=== PATIENT | female | born 2000 | race Two or more races ===

== ENCOUNTER 2022-07-17 19:59 | Emergency (ER) | payer SELFPAY ==
[~2022-07-17] VITALS: Ht 162.6 cm; Wt 63.6 kg
[2022-07-17 20:00] VITALS: BP 121/75
[2022-07-17 21:49] LABS: BASO % 0.2 % (0.0-1.0); EOS # 0.1 10^3/uL (0.0-0.5); EOS % 0.6 % (0.0-3.0); HEMATOCRIT 39.4 % (36.0-47.0); HEMOGLOBIN 12.2 g/dl (12.0-15.5); LYMPH # 0.6 10^3/uL (1.5-5.0); LYMPH % 6.8 % (24.0-44.0); MEAN CORPUSCULAR HEMOGLOBIN 29.1 pg (27.0-33.0); MONO # 0.5 10^3/uL (0.0-0.8); MONO % 5.8 % (2.0-8.0); NEUTROPHILS % 86.4 % (36.0-66.0); PLATELET COUNT, AUTOMATED 206 10^3/uL (150-450); RED BLOOD COUNT 4.19 10^6/uL (4.00-5.40); WHITE BLOOD COUNT 8.1 10^3/uL (4.0-10.0)
[2022-07-17 22:12] LABS: HCG, SERUM QUALITATIVE NEGATIVE (NEGATIVE); LIPASE 35 U/L (12-53)
[2022-07-17 22:13] LABS: ALBUMIN 4.2 G/DL (3.2-5.2); ALKALINE PHOSPHATASE 80 U/L (46-116); ALT/SGPT 85 U/L (7.0-40); AST/SGOT 455 U/L (<34); BILIRUBIN,DIRECT 0.3 MG/DL (<0.4); BILIRUBIN,TOTAL 0.8 MG/DL (0.3-1.2); BLOOD UREA NITROGEN 13 MG/DL (9-23); CARBON DIOXIDE LEVEL 26 MMOL/L (20-31); CHLORIDE LEVEL 104 MMOL/L (98-107); CREATININE FOR GFR 0.73 MG/DL (0.55-1.30); GLOMERULAR FILTRATION RATE > 60.0 (>60); GLUCOSE, FASTING 87 MG/DL (60-100); POTASSIUM SERUM 4.5 MMOL/L (3.5-5.1); SODIUM LEVEL 138 MMOL/L (136-145); TOTAL PROTEIN 7.5 G/DL (5.7-8.2)
== END 2022-07-18 00:26 | disposition left against medical advice (07) ==
LOC: M ED 19:59
DX: Z53.21 Procedure and treatment not carried out due to patient leaving prior to being seen by health care provider (principal)

== ENCOUNTER 2023-08-24 17:33 | Emergency (ER) | payer OTHER, SELFPAY ==
[~2023-08-24] VITALS: Ht 154.9 cm; Wt 79.8 kg
[2023-08-24] MEDS ORDERED: OMEP-173 (17:40)
[2023-08-24] MEDS ORDERED: FLUTISP (17:40)
[2023-08-24 18:39] LABS: BASO % 0.4 % (0.0-1.0); EOS # 0.2 10^3/uL (0.0-0.5); EOS % 3.2 % (0.0-3.0); HEMATOCRIT 40.6 % (36.0-47.0); HEMOGLOBIN 12.6 g/dl (12.0-15.5); LYMPH # 2.7 10^3/uL (1.5-5.0); LYMPH % 50.6 % (24.0-44.0); MEAN CORPUSCULAR HEMOGLOBIN 28.5 pg (27.0-33.0); MEAN CORPUSCULAR VOLUME 91.9 fl (80.0-96.0); MONO # 0.4 10^3/uL (0.0-0.8); MONO % 7.2 % (2.0-8.0); NEUTROPHILS % 38.4 % (36.0-66.0); PLATELET COUNT, AUTOMATED 279 10^3/uL (150-450); RED BLOOD COUNT 4.42 10^6/uL (4.00-5.40); WHITE BLOOD COUNT 5.3 10^3/uL (4.0-10.0)
[2023-08-24] MEDS: KETOROLAC 30 MG/ML 1ML VIAL IV ONE (19:00)
[2023-08-24 19:01] LABS: LIPASE 50 U/L (12-53)
[2023-08-24 19:03] LABS: ALBUMIN 4.3 G/DL (3.2-5.2); ALKALINE PHOSPHATASE 112 U/L (46-116); ALT/SGPT 23 U/L (7.0-40); AST/SGOT 23 U/L (<34); BILIRUBIN,DIRECT < 0.1 MG/DL (<0.4); BILIRUBIN,TOTAL 0.4 MG/DL (0.3-1.2)
[2023-08-24 20:15] LABS: Trichomonas vaginalis (AMP) NOT DETECTED (NEGATIVE)
[2023-08-24 20:38] LABS: GC DNA AMPLIFICATION NEGATIVE (NEGATIVE)
[2023-08-24 22:21] VITALS: BP 123/79; TEMP 97.9; O2SAT 100
== END 2023-08-24 22:27 | disposition home or self-care (01) ==
LOC: M ED 17:33
DX: N93.8 Other specified abnormal uterine and vaginal bleeding (principal); R10.32 Left lower quadrant pain; R10.2 Pelvic and perineal pain; N20.0 Calculus of kidney; N28.89 Other specified disorders of kidney and ureter; N85.4 Malposition of uterus; K21.9 Gastro-esophageal reflux disease without esophagitis
CPT/HCPCS: 74176; 76830; 76856; 80047; 80076; 81001; 83690; 84702; 85025; 87086; 87661; 87810; 87850; 93976; 96374; 99284; J1885

== ENCOUNTER → 2023-09-15 | Outpatient (CLI) | payer OTHER ==
[~2023-09-15] MED LIST: FLUTISP; ISOVUE-370 76% 100ML VIAL ONE; OMEP-173
== END ==
LOC: M PLAIMG 08:57
PROVIDERS: ATTEND Nurse Practitioner Family
DX: N28.9 Disorder of kidney and ureter, unspecified (principal)
CPT/HCPCS: 74170; Q9967

== ENCOUNTER → 2024-01-02 | Outpatient (CLI) | payer OTHER ==
[~2024-01-02] MED LIST changes: +ISOVUE-300 61% 100ML VIAL As Ordered ONE; -ISOVUE-370 76% 100ML VIAL ONE; +LIDOCAINE 1% MDV 20ML VIAL As Ordered ONE; +TRIAMCINOLONE ACETONIDE SUSP 40MG/ML 1ML VIAL As Ordered ONE
== END ==
LOC: M RAD 12:26
PROVIDERS: ATTEND Physician Assistant Surgical
DX: S73.122A Ischiocapsular ligament sprain of left hip, initial encounter (principal); S73.121A Ischiocapsular ligament sprain of right hip, initial encounter; X58.XXXA Exposure to other specified factors, initial encounter; Y92.9 Unspecified place or not applicable
CPT/HCPCS: 20610; 77002; J3301; Q9967

== ENCOUNTER 2024-02-29 19:17 | Inpatient (IN) | payer OTHER ==
[~2024-02-29] VITALS: Ht 162.6 cm; Wt 75.0 kg
[~2024-02-29 19:17] MED LIST changes: -ISOVUE-300 61% 100ML VIAL As Ordered ONE; -LIDOCAINE 1% MDV 20ML VIAL As Ordered ONE; -TRIAMCINOLONE ACETONIDE SUSP 40MG/ML 1ML VIAL As Ordered ONE
[2024-02-29 20:06] LABS: HEMATOCRIT 38.1 % (36.0-47.0); HEMOGLOBIN 11.7 g/dl (12.0-15.5); MEAN CORPUSCULAR HEMOGLOBIN 28.5 pg (27.0-33.0); MEAN CORPUSCULAR HGB CONC 30.7 g/dl (32.0-36.5); MEAN CORPUSCULAR VOLUME 92.9 fl (80.0-96.0); PLATELET COUNT, AUTOMATED 287 10^3/uL (150-450); WHITE BLOOD COUNT 8.4 10^3/uL (4.0-10.0)
[2024-02-29 20:26] LABS: ETHYL ALCOHOL (ETHANOL) 0.007 % (0.000-0.010)
[2024-02-29 20:28] LABS: ALBUMIN 3.9 G/DL (3.2-5.2); ALKALINE PHOSPHATASE 92 U/L (46-116); ALT/SGPT < 9 U/L (7.0-40); AST/SGOT < 8 U/L (<34); BILIRUBIN,DIRECT < 0.1 MG/DL (<0.4); BILIRUBIN,TOTAL 0.4 MG/DL (0.3-1.2); BLOOD UREA NITROGEN 10 MG/DL (9-23); CALCIUM LEVEL 10.2 MG/DL (8.5-10.1); CARBON DIOXIDE LEVEL 23 MMOL/L (20-31); CHLORIDE LEVEL 107 MMOL/L (98-107); CREATININE FOR GFR 0.72 MG/DL (0.55-1.30); GLOMERULAR FILTRATION RATE > 60.0 (>60); GLUCOSE, FASTING 82 MG/DL (60-100); POTASSIUM SERUM 4.1 MMOL/L (3.5-5.1); SALICYLATE LEVEL < 3.0 MG/DL (<30); SODIUM LEVEL 137 MMOL/L (136-145); TOTAL PROTEIN 7.6 G/DL (5.7-8.2)
[2024-02-29 21:56] LABS: HCG, SERUM QUALITATIVE NEGATIVE (NEGATIVE)
[2024-02-29 21:58] LABS: AMPHETAMINES LEVEL URINE NEGATIVE (NEGATIVE); BARBITURATES URINE NEGATIVE (NEGATIVE); BENZODIAZEPINES URINE NEGATIVE (NEGATIVE); CANNABINOIDS URINE NEGATIVE (NEGATIVE); COCAINE METABOLITE URINE NEGATIVE (NEGATIVE); METHADONE URINE NEGATIVE (NEGATIVE); OPIATES URINE NEGATIVE (NEGATIVE); PHENCYCLIDINE URINE NEGATIVE (NEGATIVE)
[2024-02-29 22:23] LABS: THYROID STIMULATING HORMONE 2.077 uIU/ML (0.55-4.78)
[2024-02-29] MEDS ORDERED: HOME MED LIST COMPLETE! XX SCH (23:50)
[2024-03-01] MEDS ORDERED: MOM 30ML SUSPENSION UDC PO PRN (12:50)
[2024-03-01] MEDS ORDERED: ACETAMINOPHEN TAB 650MG DOSE (2X325MG) PO PRN (12:50)
[2024-03-01] MEDS ORDERED: MAALOX 30 ML SUSP *UDC PO PRN (12:50)
[2024-03-01] MEDS ORDERED: IBUPROFEN 400MG TAB PO PRN (12:50)
[2024-03-02 06:28] VITALS: BP 113/63; TEMP 97.5; O2SAT 100
[2024-03-02 16:34] VITALS: BP 137/81; TEMP 97.9; O2SAT 100
[2024-03-02] MEDS: traZODone 50 MG TAB PO PRN (20:24)
[2024-03-03 06:17] VITALS: BP 114/56; TEMP 98.3; O2SAT 99
[2024-03-03 16:59] VITALS: BP 126/62; TEMP 97.2; O2SAT 100
[2024-03-03] MEDS: diphenhydrAMINE 25MG CAP PO PRN (20:12)
[2024-03-04 06:34] VITALS: BP 129/74; TEMP 97.8; O2SAT 100
== END 2024-03-04 13:22 | disposition home or self-care (01) | DRG 882 ==
LOC: M ED 19:17 → M ED INP 03-01 12:50 → M PSY 03-01 13:52
PROVIDERS: ADMIT Psychiatry & Neurology Psychiatry; ATTEND Psychiatry & Neurology Psychiatry
DX: F43.25 Adjustment disorder with mixed disturbance of emotions and conduct (principal); R45.851 Suicidal ideations; Z56.5 Uncongenial work environment; Z56.4 Discord with boss and workmates

== ENCOUNTER → 2024-03-19 | Outpatient (CLI) | payer OTHER ==
[~2024-03-19] MED LIST changes: +ISOVUE-370 76% 100ML VIAL As Ordered ONE
== END ==
LOC: M RAD 12:35
PROVIDERS: ATTEND Nurse Practitioner Family
DX: N28.1 Cyst of kidney, acquired (principal)

== ENCOUNTER 2024-06-24 14:08 | Emergency (ER) | payer OTHER ==
[~2024-06-24] VITALS: Ht 160 cm; Wt 71.2 kg
[~2024-06-24 14:08] MED LIST changes: -ISOVUE-370 76% 100ML VIAL As Ordered ONE
[2024-06-24] MEDS: ACETAMINOPHEN 500 MG TAB PO ONE (16:07)
[2024-06-24] MEDS ORDERED: MAALSUS19 SSP (18:52)
[2024-06-24 19:08] VITALS: BP 117/69; TEMP 99.1; O2SAT 99
== END 2024-06-24 19:10 | disposition home or self-care (01) ==
LOC: M ED 14:08
DX: J11.1 Influenza due to unidentified influenza virus with other respiratory manifestations (principal); B97.29 Other coronavirus as the cause of diseases classified elsewhere

== ENCOUNTER 2024-09-09 10:38 | Emergency (ER) | payer OTHER ==
[~2024-09-09] VITALS: Ht 162.6 cm; Wt 73.4 kg
[~2024-09-09 10:38] MED LIST changes: +MAALSUS19 SSP
[2024-09-09 10:41] VITALS: BP 132/66; TEMP 97.2; O2SAT 100
== END 2024-09-09 12:56 | disposition home or self-care (01) ==
LOC: M ED 10:38
DX: Z48.02 Encounter for removal of sutures (principal)